=== PATIENT | female | born 1950 | race Caucasian/White ===

== ENCOUNTER → 2023-12-03 13:16 | Outpatient (REF) | payer MEDICARE, SELFPAY | LOC: MRI 13:16 | PROVIDERS: ATTENDING PHYSICIAN Orthopaedic Surgery Hand Surgery; FAMILY PHYSICIAN Internal Medicine | DX: S43.004A Unspecified dislocation of right shoulder joint, initial encounter (principal) | CPT/HCPCS: 73221 ==

== ENCOUNTER → 2023-12-12 08:35 | Outpatient (REF) | payer MEDICARE, SELFPAY | LOC: RAD 08:35 | PROVIDERS: ATTENDING PHYSICIAN Orthopaedic Surgery Hand Surgery; FAMILY PHYSICIAN Internal Medicine | DX: S46.011D Strain of muscle(s) and tendon(s) of the rotator cuff of right shoulder, subsequent encounter (principal) | CPT/HCPCS: 73200 ==

== ENCOUNTER 2023-12-16 05:57 | Day surgery (SDC) | payer MEDICARE, SELFPAY ==
--- NOTE | 2023-12-08 13:56 | CM ---
Patient is scheduled for an elective R Reverse TSA on 12/16/23- she is a same day patient. Spoke with patient prior to surgery. Introduced role of Orthopedic Navigator. Patient reports that she lives alone in a two story home. Currently she
functions independently. She does not use any DME and has never had VN services. PCP is Dr. Platt.
Discussed orthopedic program and post surgical plans. Patient will return home when directed by surgeon. Reviewed MD follow up and transition to outpatient therapy. Patient is in agreement with tentative plan and states that her friend Myah will
be her support person. Patient has been in sling since 10/15/23 and has been living alone and managing well.
Patient will complete online education.
Plan: Orthopedic Navigator will be involved in the care of patient after surgery and will reassess discharge needs at that time.
[2023-12-10 13:05] VITALS: BMI 29.7
[2023-12-10 14:07] LABS: Hematocrit 39.9 % (37.0-47.0); Hemoglobin 13.5 g/dL (12.0-16.0); Mean Corp Hgb Conc. 33.8 g/dL (33.0-37.0); Mean Corpuscular Hgb 31.4 pg (27.0-31.0); Mean Corpuscular Volume 92.8 fL (81.0-99.0); Mean Platelet Volume 10.4 fL (7.4-10.4); Platelet Count 266 10^3/uL (130-400); Red Cell Dist. Width 13.2 % (11.5-14.5); White Blood Cell Count 6.7 10^3/uL (4.8-10.8)
[2023-12-10 14:17] LABS: Glycohemoglobin (HgbA1c) 5.3 % (4.0-5.6)
[2023-12-10 14:29] LABS: ALT (SGPT) < 10 U/L (0-35); AST (SGOT) 24 U/L (14-36); Albumin 3.9 g/dl (3.5-5.0); Alkaline Phosphatase 58 U/L (38-126); Blood Urea Nitrogen 19 mg/dl (7-17); Calcium 9.8 mg/dl (8.4-10.2); Carbon Dioxide 24 mmol/L (22-30); Chloride 103 mmol/L (98-107); Estimated Creatinine Clearance 73 ml/min; Glucose 88 mg/dl (70-99); Potassium 4.1 mmol/L (3.5-5.1); Sodium 136 mmol/L (135-145); Total Protein 6.2 g/dl (6.3-8.2); eGFR > 60.00
--- NOTE | 2023-12-11 11:52 | HPS.HSE ---
Family Physician
-
Family Physician: Ray Platt
Chief Complaint
-
Traumatic complete tear of the right rotator cuff. Same day surgery.
History of Present Illness
The patient is a 73 year old female presenting today for a traumatic complete tear of her right rotator cuff. In late September 2023, she tripped over a carpet and fell with her right arm outstretched. She ended up needing to have her right
shoulder reduced due to an anterior shoulder dislocation confirmed through x-ray in the ED. Since then, she continues to have right shoulder pain and instability. Her right shoulder symptoms greatly interfere with her activities of daily living and
have overall impacted her quality of life. A recent MRI of the right shoulder demonstrated a nondisplaced greater tuberosity fracture with surrounding edema and a tear involving the supraspinatus and infraspinatus with retraction to the level of the
glenoid. She was determined to be in need of a right reverse total shoulder arthroplasty. She denies any current complaints today such as chest pain, shortness of breath, palpitations, nausea, vomiting, diarrhea, lightheadedness, dizziness, cough,
sore throat, or fever.
Medical History
Past Medical History
Past Medical History: Reports Other
Additional Past Medical History:
1. Traumatic complete tear of the right rotator cuff.
2. Hypertension.
3. Hypercholesterolemia.
4. Non-sustained ventricular tachycardia.
5. PVCs, asymptomatic.
6. Complete heart block, status post dual chamber pacemaker implant 01/2020.
7. Mild valvular disease.
8. Chronic dyspnea on exertion.
9. Diverticulosis.
10. Small bowel obstruction, 2012, status post bowel resection and lysis of adhesions.
11. Parkinson's disease.
12. Hypothyroidism.
13. Basal cell carcinoma, face and head, status post excision.
14. Vitamin B12 deficiency.
15. Remote history of tobacco abuse.
16. Daily alcohol.
Past Surgical History: Reports Other
Additional Past Surgical History:
1. Diagnostic laparoscopy, lysis of adhesions, and small bowel resection.
2. Hysterectomy.
3. Right inguinal hernia repair.
4. Left sided dual chamber pacemaker insertion.
5. Plastic surgery for smith to face, bilateral upper extremities.
6. Basal cell carcinoma excision.
7. Tonsillectomy and adenoidectomy.
8. Dental extractions.
9. Bilateral cataract extraction.
10. Colonoscopy x2.
Social History
Tobacco: Former Smoker (Former less than 1 pack per day cigarette smoker who quit tobacco altogether in 1997. )
Alcohol: Daily (Reportedly drinks 1-2 glasses of wine nightly. )
Personal:
Living: Other (She resides independently in a 2 story home. She will be staying at her friend Iqra's home for a few days after surgery. )
Family History
Family History: Not pertinent
Allergies / Home Medications
Allergy/Medication List:
Home medications:
1. Acetaminophen 1000 mg p.o. every 6 hours as needed.
2. Carbidopa-Levodopa 25-100 mg, 1 tablet p.o. three times a day.
3. Levothyroxine 100 mcg p.o. daily.
4. Lisinopril 2.5 mg p.o. daily.
5. Simvastatin 80 mg p.o. daily.
Allergies: No known allergies.
Review of Systems
-
A 12 point ROS was completed and negative except as noted: Yes
Physical Exam
Vital Signs
Blood pressure 129/74. Heart rate 63. Respirations 18. Pulse ox 97% on room air.
Height 5 feet, 1 inch. Weight 71.3 kg. BMI 29.7.
Physical Exam
General: Well Developed, Well Nourished and No Apparent Distress
HEENT: NormoCephalic, Moist mucous membranes, Atraumatic and PERRLA
Respiratory: Clear
Cardiac: Regular Rhythm and Other (Pacemaker site intact. )
GI: Soft, Non Tender and Non Distended
Musculoskeletal: Other (Pain upon palpation of the proximal right humerus. Deltoid fires without difficulty and sensation is intact to light touch. Passive range of motion is full with gross instability and crepitation. )
Skin: Warm and Dry
Neuro: AO x 3 and Nonfocal/grossly intact
Laboratory Results
-
12/10/23 12:49
12/10/23 12:49
Laboratory Results
Total Bilirubin 1.0 mg/dl (0.2-1.3) 12/10/23 12:49
AST 24 U/L (14-36) 12/10/23 12:49
ALT < 10 U/L (0-35) 12/10/23 12:49
Alkaline Phosphatase 58 U/L (38-126) 12/10/23 12:49
Hemoglobin A1c 5.3.
MRSA nasal screen negative.
EKG provided by Cardiology.
Echocardiogram 03/27/2022: Normal left ventricular chamber size. Normal left ventricular systolic function. Left ventricular ejection fraction is 65% by visual assessment. Normal regional wall motion. Mild concentric left ventricular
hypertrophy.�Pacer wire seen in right ventricle. Mild mitral regurgitation. Mild tricuspid regurgitation. Small, loculated pericardial effusion. Compared to previous echo from January 2020, there is a small loculated pericardial effusion and pacer
wire seen.
Impression/Plan
-
CLEARANCES:
1. Cardiology, Dr. Mamadou Fuentes, cleared.
2. Primary medical and dental waived.
IMPRESSION/PLAN:
1. Traumatic complete tear of the right rotator cuff in need of a right reverse total shoulder arthroplasty with Dr. Jaun Ashley on 12/16/2023. The benefits and risks of the procedure have been explained to the patient. The patient understands
these risks and wishes to proceed.
2. DVT prophylaxis: Aspirin with bilateral venous compression devices.
3. 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 In preparation for her procedure. she has already been prescribed Oxycodone 5
mg, 1-2 tablets p.o. every 6 hours as needed for moderate to severe post-operative pain. She will also utilize Acetaminophen 1000 mg p.o. every 6 hours and Celebrex 200 mg p.o. daily.
Patient's home phone number: [phone].
Patient's cell phone number: [phone].
Patient's contact (Iqra Putnam - Friend): [phone].
[2023-12-11 15:02] VITALS: BMI 29.7
[2023-12-16] VITALS (12 sets, daily range): BP systolic 119–151; BP diastolic 58–88; BMI 29.7
[2023-12-16] MEDS: CELEBREX 200 MG PO (06:23)
[2023-12-16] MEDS: TYLENOL 1000 MG PO (06:23)
[2023-12-16] MEDS: NORMOSOL-R 1000 IV (06:23)
[2023-12-16] MEDS: ANCEF 5 IV (11:22)
== END 2023-12-16 12:03 | disposition home or self-care (01) ==
LOC: SDS 05:57
PROVIDERS: ATTENDING PHYSICIAN Orthopaedic Surgery Hand Surgery; FAMILY PHYSICIAN Internal Medicine; OTHER PHYSICIAN Internal Medicine Cardiovascular Disease; OTHER PHYSICIAN Physician Assistant
DX: S46.011A Strain of muscle(s) and tendon(s) of the rotator cuff of right shoulder, initial encounter (principal); X58.XXXA Exposure to other specified factors, initial encounter
CPT/HCPCS: 23472; 36415; 73020; 80053; 83036; 85027; 87070; C1713; C1776

== ENCOUNTER 2024-01-21 13:52 | Outpatient (RCR) | payer MEDICARE, SELFPAY | END 2024-01-21 23:59 | disposition home or self-care (01) | LOC: RPT 13:52 | PROVIDERS: ATTENDING PHYSICIAN Physician Assistant Surgical; FAMILY PHYSICIAN Internal Medicine | DX: Z47.89 Encounter for other orthopedic aftercare (principal); M25.511 Pain in right shoulder; M62.81 Muscle weakness (generalized); R29.3 Abnormal posture | CPT/HCPCS: 97010; 97110; 97140; 97162; 97530 ==

== ENCOUNTER → 2024-02-16 08:01 | Outpatient (REF) | payer MEDICARE, SELFPAY ==
[2024-02-16 08:46] LABS: % Basophils 1.1 % (0-2); % Eosinophils 3.7 % (0-6); % Immature Granulocytes 0.4 % (0-0.5); % Lymphocytes 26.6 % (20.5-51.1); % Monocytes 11.2 % (1.7-9.3); Absolute Basophils 0.1 10^3/uL (0-0.2); Absolute Eosinophils 0.2 10^3/uL (0-0.7); Absolute Lymphocytes 1.5 10^3/uL (1.2-3.4); Absolute Monocytes 0.6 10^3/uL (0.1-0.6); Absolute Neutrophils 3.1 10^3/uL (1.4-6.5); Hematocrit 43.3 % (37.0-47.0); Hemoglobin 14.3 g/dL (12.0-16.0); Mean Corpuscular Hgb 30.6 pg (27.0-31.0); Mean Corpuscular Volume 92.5 fL (81.0-99.0); Nucleated Red Blood Cells % 0 %; Platelet Count 210 10^3/uL (130-400); Red Blood Cell Count 4.68 10^6/uL (4.20-5.40); Red Cell Dist. Width 13.1 % (11.5-14.5); White Blood Cell Count 5.5 10^3/uL (4.8-10.8)
[2024-02-16 09:29] LABS: ALT (SGPT) < 10 U/L (0-35); AST (SGOT) 24 U/L (14-36); Albumin 4.5 g/dl (3.5-5.0); Alkaline Phosphatase 73 U/L (38-126); Blood Urea Nitrogen 25 mg/dl (7-17); Calcium 10.2 mg/dl (8.4-10.2); Carbon Dioxide 25 mmol/L (22-30); Chloride 104 mmol/L (98-107); Glucose 94 mg/dl (70-99); HDL Cholesterol 84 mg/dl; LDL Cholesterol, Calculated 89 mg/dl; Potassium 4.2 mmol/L (3.5-5.1); Sodium 136 mmol/L (135-145); Total Bilirubin 0.9 mg/dl (0.2-1.3); Total Cholesterol 196 mg/dl (50-199); Total Protein 6.9 g/dl (6.3-8.2); Triglyceride 116 mg/dl (10-149); Very Low Density Lipoprotein 23 mg/dl (0-30); eGFR > 60.00
[2024-02-16 09:49] LABS: TSH Reflex To Free T4 4.91 uIU/ml (0.47-4.68)
== END ==
LOC: REG 08:01
PROVIDERS: ATTENDING PHYSICIAN Internal Medicine
DX: I10 Essential (primary) hypertension (principal); E78.2 Mixed hyperlipidemia
CPT/HCPCS: 36415; 80053; 80061; 84439; 84443; 85025

== ENCOUNTER 2024-02-23 13:14 | Outpatient (RCR) | payer MEDICARE, SELFPAY | END 2024-02-23 23:59 | disposition home or self-care (01) | LOC: RPT 13:14 | PROVIDERS: ATTENDING PHYSICIAN Physician Assistant Surgical; FAMILY PHYSICIAN Internal Medicine | DX: Z47.89 Encounter for other orthopedic aftercare (principal); M25.511 Pain in right shoulder; M62.81 Muscle weakness (generalized); R29.3 Abnormal posture; Z73.6 Limitation of activities due to disability | CPT/HCPCS: 97010; 97110; 97140; 97530 ==

== ENCOUNTER → 2024-03-01 08:51 | Outpatient (REF) | payer MEDICARE, SELFPAY ==
[2024-03-01 12:07] LABS: Vitamin B12 632 pg/ml (239-931)
== END ==
LOC: REG 08:51
PROVIDERS: ATTENDING PHYSICIAN Psychiatry & Neurology Neurology; FAMILY PHYSICIAN Internal Medicine
DX: E53.8 Deficiency of other specified B group vitamins (principal)
CPT/HCPCS: 36415; 82607

== ENCOUNTER 2024-03-25 09:54 | Outpatient (RCR) | payer MEDICARE, SELFPAY | END 2024-03-25 23:59 | disposition home or self-care (01) | LOC: RPT 09:54 | PROVIDERS: ATTENDING PHYSICIAN Physician Assistant Surgical; FAMILY PHYSICIAN Internal Medicine | DX: M25.511 Pain in right shoulder (principal); Z47.89 Encounter for other orthopedic aftercare; M62.81 Muscle weakness (generalized); Z91.81 History of falling | CPT/HCPCS: 97010; 97110; 97112; 97140; 97530 ==

== ENCOUNTER 2024-04-22 11:23 | Outpatient (RCR) | payer MEDICARE, SELFPAY | END 2024-04-22 23:59 | disposition home or self-care (01) | LOC: RPT 11:23 | PROVIDERS: ATTENDING PHYSICIAN Physician Assistant Surgical; FAMILY PHYSICIAN Internal Medicine | DX: Z47.89 Encounter for other orthopedic aftercare (principal); M25.511 Pain in right shoulder; M62.81 Muscle weakness (generalized); R29.3 Abnormal posture | CPT/HCPCS: 97010; 97110; 97112; 97140; 97530 ==

== ENCOUNTER 2024-05-24 11:58 | Outpatient (RCR) | payer MEDICARE, SELFPAY | END 2024-05-24 23:59 | disposition home or self-care (01) | LOC: RPT 11:58 | PROVIDERS: ATTENDING PHYSICIAN Physician Assistant Surgical; FAMILY PHYSICIAN Internal Medicine | DX: Z47.89 Encounter for other orthopedic aftercare (principal); M25.511 Pain in right shoulder; M62.81 Muscle weakness (generalized); R29.3 Abnormal posture | CPT/HCPCS: 97010; 97110; 97140; 97530 ==

== ENCOUNTER → 2024-06-04 08:17 | Outpatient (REF) | payer MEDICARE, SELFPAY ==
[2024-06-04 09:05] LABS: % Basophils 1.4 % (0-2); % Eosinophils 3.7 % (0-6); % Immature Granulocytes 0.4 % (0-0.5); % Lymphocytes 26.4 % (20.5-51.1); % Monocytes 10.2 % (1.7-9.3); % Neutrophils 57.9 % (42.2-75.2); Absolute Basophils 0.1 10^3/uL (0-0.2); Absolute Eosinophils 0.2 10^3/uL (0-0.7); Absolute Lymphocytes 1.4 10^3/uL (1.2-3.4); Absolute Monocytes 0.5 10^3/uL (0.1-0.6); Hematocrit 37.5 % (37.0-47.0); Hemoglobin 13.1 g/dL (12.0-16.0); Mean Corp Hgb Conc. 34.9 g/dL (33.0-37.0); Mean Corpuscular Hgb 30.7 pg (27.0-31.0); Mean Corpuscular Volume 87.8 fL (81.0-99.0); Mean Platelet Volume 10.1 fL (7.4-10.4); Nucleated Red Blood Cells % 0 %; Platelet Count 207 10^3/uL (130-400); Red Blood Cell Count 4.27 10^6/uL (4.20-5.40); Red Cell Dist. Width 13.5 % (11.5-14.5); White Blood Cell Count 5.2 10^3/uL (4.8-10.8)
[2024-06-04 09:53] LABS: ALT (SGPT) < 10 U/L (0-35); AST (SGOT) 25 U/L (14-36); Albumin 4.1 g/dl (3.5-5.0); Alkaline Phosphatase 62 U/L (38-126); Blood Urea Nitrogen 18 mg/dl (7-17); Calcium 9.9 mg/dl (8.4-10.2); Carbon Dioxide 24 mmol/L (22-30); Chloride 106 mmol/L (98-107); Glucose 87 mg/dl (70-99); HDL Cholesterol 77 mg/dl; LDL Cholesterol, Calculated 103 mg/dl; Potassium 4.2 mmol/L (3.5-5.1); Sodium 136 mmol/L (135-145); Total Bilirubin 1.2 mg/dl (0.2-1.3); Total Cholesterol 204 mg/dl (50-199); Total Protein 6.1 g/dl (6.3-8.2); Triglyceride 124 mg/dl (10-149); Very Low Density Lipoprotein 24 mg/dl (0-30); eGFR > 60.00
[2024-06-04 10:53] LABS: Free T4 1.07 ng/dl (0.78-2.19)
== END ==
LOC: REG 08:17
PROVIDERS: ATTENDING PHYSICIAN Internal Medicine
DX: I10 Essential (primary) hypertension (principal); E03.9 Hypothyroidism, unspecified; E78.2 Mixed hyperlipidemia
CPT/HCPCS: 36415; 80053; 80061; 84439; 84443; 85025

== ENCOUNTER 2024-06-24 10:57 | Outpatient (RCR) | payer MEDICARE, SELFPAY | END 2024-06-24 23:59 | disposition home or self-care (01) | LOC: RPT 10:57 | PROVIDERS: ATTENDING PHYSICIAN Physician Assistant Surgical; FAMILY PHYSICIAN Internal Medicine | DX: Z47.1 Aftercare following joint replacement surgery (principal); Z96.611 Presence of right artificial shoulder joint; M25.511 Pain in right shoulder | CPT/HCPCS: 97010; 97110; 97112; 97140; 97530 ==

== ENCOUNTER 2024-07-22 11:01 | Outpatient (RCR) | payer MEDICARE, SELFPAY | END 2024-07-22 23:59 | disposition home or self-care (01) | LOC: RPT 11:01 | PROVIDERS: ATTENDING PHYSICIAN Physician Assistant Surgical; FAMILY PHYSICIAN Internal Medicine | DX: Z47.89 Encounter for other orthopedic aftercare (principal); M25.511 Pain in right shoulder; M62.81 Muscle weakness (generalized); R29.3 Abnormal posture; Z73.6 Limitation of activities due to disability | CPT/HCPCS: 97010; 97110; 97112; 97530 ==

== ENCOUNTER 2024-08-25 11:58 | Outpatient (RCR) | payer MEDICARE, SELFPAY | END 2024-08-25 23:59 | disposition home or self-care (01) | LOC: RPT 11:58 | PROVIDERS: ATTENDING PHYSICIAN Physician Assistant Surgical; FAMILY PHYSICIAN Internal Medicine | DX: Z47.1 Aftercare following joint replacement surgery (principal); Z96.611 Presence of right artificial shoulder joint | CPT/HCPCS: 97110; 97112; 97530 ==

== ENCOUNTER → 2024-09-23 13:24 | Outpatient (REF) | payer MEDICARE, SELFPAY | LOC: MRI 13:24 | PROVIDERS: ATTENDING PHYSICIAN Orthopaedic Surgery Hand Surgery; FAMILY PHYSICIAN Internal Medicine | DX: M79.601 Pain in right arm (principal) | CPT/HCPCS: 72141; 72148; 73218 ==

== ENCOUNTER → 2024-10-11 08:36 | Outpatient (REF) | payer MEDICARE, SELFPAY ==
[2024-10-11 14:24] LABS: Free T4 1.33 ng/dl (0.78-2.19)
== END ==
LOC: REG 08:36
PROVIDERS: ATTENDING PHYSICIAN Internal Medicine
DX: E03.9 Hypothyroidism, unspecified (principal)
CPT/HCPCS: 36415; 84439; 84443

== ENCOUNTER → 2025-02-17 07:50 | Outpatient (REF) | payer MEDICARE, SELFPAY ==
[2025-02-17 09:44] LABS: ALT (SGPT) < 10 U/L (0-35); AST (SGOT) 25 U/L (14-36); Albumin 3.8 g/dl (3.5-5.0); Alkaline Phosphatase 84 U/L (38-126); Blood Urea Nitrogen 23 mg/dl (7-17); Calcium 9.2 mg/dl (8.4-10.2); Carbon Dioxide 26 mmol/L (22-30); Chloride 107 mmol/L (98-107); Glucose 92 mg/dl (70-99); HDL Cholesterol 43 mg/dl; LDL Cholesterol, Calculated 89 mg/dl; Potassium 4.4 mmol/L (3.5-5.1); Sodium 141 mmol/L (135-145); Total Bilirubin 0.9 mg/dl (0.2-1.3); Total Cholesterol 152 mg/dl (50-199); Total Protein 6.2 g/dl (6.3-8.2); Triglyceride 104 mg/dl (10-149); Very Low Density Lipoprotein 20 mg/dl (0-30); eGFR > 60.00
[2025-02-17 10:11] LABS: TSH Reflex To Free T4 5.99 uIU/ml (0.47-4.68)
[2025-02-17 10:41] LABS: Free T4 1.54 ng/dl (0.78-2.19)
== END ==
LOC: REG 07:50
PROVIDERS: ATTENDING PHYSICIAN Internal Medicine
DX: E03.9 Hypothyroidism, unspecified (principal); E78.5 Hyperlipidemia, unspecified; I10 Essential (primary) hypertension; E78.2 Mixed hyperlipidemia
CPT/HCPCS: 36415; 80053; 80061; 84439; 84443

== ENCOUNTER → 2025-03-10 07:51 | Outpatient (REF) | payer MEDICARE, SELFPAY | LOC: RCS 07:51 | PROVIDERS: ATTENDING PHYSICIAN Internal Medicine Cardiovascular Disease; FAMILY PHYSICIAN Internal Medicine | DX: I49.3 Ventricular premature depolarization (principal); R06.02 Shortness of breath | CPT/HCPCS: 93306 ==

== ENCOUNTER → 2025-03-27 11:51 | Outpatient (REF) | payer MEDICARE, SELFPAY | LOC: RCS 11:51 | PROVIDERS: ATTENDING PHYSICIAN Internal Medicine Cardiovascular Disease; FAMILY PHYSICIAN Internal Medicine | DX: I49.3 Ventricular premature depolarization (principal); R06.02 Shortness of breath | CPT/HCPCS: 78452; 93017; A9500; J2785 ==

== ENCOUNTER → 2025-04-05 08:56 | Outpatient (REF) | payer MEDICARE, SELFPAY | LOC: HWRAD 08:56 | PROVIDERS: ATTENDING PHYSICIAN Orthopaedic Surgery Hand Surgery; FAMILY PHYSICIAN Internal Medicine | DX: Z96.611 Presence of right artificial shoulder joint (principal) | CPT/HCPCS: 73200 ==

== ENCOUNTER → 2025-04-14 11:50 | Outpatient (REF) | payer MEDICARE, SELFPAY ==
[2025-04-14 13:24] LABS: % Basophils 0.8 % (0-2); % Eosinophils 0.9 % (0-6); % Immature Granulocytes 0.9 % (0-0.5); % Lymphocytes 9.9 % (20.5-51.1); % Monocytes 8.3 % (1.7-9.3); % Neutrophils 79.2 % (42.2-75.2); Absolute Basophils 0.1 10^3/uL (0-0.2); Absolute Eosinophils 0.1 10^3/uL (0-0.7); Absolute Immature Granulocytes 0.1 10^3/uL (0-0.05); Absolute Lymphocytes 1.2 10^3/uL (1.2-3.4); Absolute Neutrophils 9.3 10^3/uL (1.4-6.5); Hematocrit 41.3 % (37.0-47.0); Mean Corp Hgb Conc. 33.9 g/dL (33.0-37.0); Mean Corpuscular Hgb 29.9 pg (27.0-31.0); Mean Corpuscular Volume 88.2 fL (81.0-99.0); Mean Platelet Volume 11.5 fL (7.4-10.4); Nucleated Red Blood Cells % 0 %; Platelet Count 213 10^3/uL (130-400); Red Blood Cell Count 4.68 10^6/uL (4.20-5.40); White Blood Cell Count 11.7 10^3/uL (4.8-10.8)
[2025-04-14 13:48] LABS: C-Reactive Protein < 5.00 mg/L (0.0-10.00)
[2025-04-14 14:06] LABS: Erythrocyte Sed Rate 5 mm/hour (0-20)
== END ==
LOC: REG 11:50
PROVIDERS: ATTENDING PHYSICIAN Orthopaedic Surgery Hand Surgery; FAMILY PHYSICIAN Internal Medicine
DX: Z96.611 Presence of right artificial shoulder joint (principal)
CPT/HCPCS: 36415; 85025; 85652; 86140

== ENCOUNTER 2025-04-18 13:03 | Outpatient (RCR) | payer MEDICARE, SELFPAY | END 2025-04-18 23:59 | disposition home or self-care (01) | LOC: RPT 13:03 | PROVIDERS: ATTENDING PHYSICIAN Orthopaedic Surgery Hand Surgery; FAMILY PHYSICIAN Internal Medicine | DX: Z47.1 Aftercare following joint replacement surgery (principal); Z96.611 Presence of right artificial shoulder joint; Z73.6 Limitation of activities due to disability | CPT/HCPCS: 97010; 97110; 97112; 97140; 97162 ==

== ENCOUNTER → 2025-04-20 12:26 | Outpatient (REF) | payer MEDICARE, SELFPAY ==
[2025-04-20 12:54] VITALS: BP 127/76; BP_SYST 80
== END ==
LOC: RADI 12:26
PROVIDERS: ATTENDING PHYSICIAN Orthopaedic Surgery Hand Surgery; FAMILY PHYSICIAN Internal Medicine
DX: M25.511 Pain in right shoulder (principal); Z96.611 Presence of right artificial shoulder joint
CPT/HCPCS: 20610; 76942; 77002; 87015; 87070; 87075; 87205

== ENCOUNTER → 2025-05-19 14:07 | Outpatient (REF) | payer MEDICARE, SELFPAY | LOC: WDC 14:07 | PROVIDERS: ATTENDING PHYSICIAN Internal Medicine | DX: Z78.0 Asymptomatic menopausal state (principal); Z12.31 Encounter for screening mammogram for malignant neoplasm of breast | CPT/HCPCS: 77063; 77067; 77080 ==

== ENCOUNTER 2025-05-22 13:23 | Outpatient (RCR) | payer MEDICARE, SELFPAY | END 2025-05-22 23:59 | disposition home or self-care (01) | LOC: RPT 13:23 | PROVIDERS: ATTENDING PHYSICIAN Orthopaedic Surgery Hand Surgery; FAMILY PHYSICIAN Internal Medicine | DX: Z47.1 Aftercare following joint replacement surgery (principal); Z96.611 Presence of right artificial shoulder joint; M62.81 Muscle weakness (generalized); Z73.6 Limitation of activities due to disability; M25.511 Pain in right shoulder | CPT/HCPCS: 97010; 97110; 97140 ==

== ENCOUNTER 2025-06-23 09:13 | Outpatient (RCR) | payer MEDICARE, SELFPAY | END 2025-06-23 23:59 | disposition home or self-care (01) | LOC: RPT 09:13 | PROVIDERS: ATTENDING PHYSICIAN Orthopaedic Surgery Hand Surgery; FAMILY PHYSICIAN Internal Medicine | DX: Z47.1 Aftercare following joint replacement surgery (principal); Z73.6 Limitation of activities due to disability; M25.511 Pain in right shoulder; M62.81 Muscle weakness (generalized); Z96.611 Presence of right artificial shoulder joint | CPT/HCPCS: 97010; 97110; 97140 ==

== ENCOUNTER 2025-07-25 06:23 | Outpatient (RCR) | payer MEDICARE, SELFPAY | END 2025-07-25 23:59 | disposition home or self-care (01) | LOC: RPT 06:23 | PROVIDERS: ATTENDING PHYSICIAN Orthopaedic Surgery Hand Surgery; FAMILY PHYSICIAN Internal Medicine | DX: Z47.1 Aftercare following joint replacement surgery (principal); M25.511 Pain in right shoulder; M62.81 Muscle weakness (generalized); Z96.611 Presence of right artificial shoulder joint; Z73.6 Limitation of activities due to disability | CPT/HCPCS: 97010; 97110; 97140 ==

== ENCOUNTER 2025-08-24 07:00 | Outpatient (RCR) | payer MEDICARE, SELFPAY | END 2025-08-24 23:59 | disposition home or self-care (01) | LOC: RPT 07:00 | PROVIDERS: ATTENDING PHYSICIAN Orthopaedic Surgery Hand Surgery; FAMILY PHYSICIAN Internal Medicine | DX: Z47.1 Aftercare following joint replacement surgery (principal); Z73.6 Limitation of activities due to disability; M25.511 Pain in right shoulder; M62.81 Muscle weakness (generalized); Z96.611 Presence of right artificial shoulder joint | CPT/HCPCS: 97110; 97112; 97140 ==

== ENCOUNTER 2025-09-01 13:27 | Outpatient (RCR) | payer MEDICARE, SELFPAY | END 2025-09-01 14:05 | disposition home or self-care (01) | LOC: RPT 13:27 | PROVIDERS: ATTENDING PHYSICIAN Orthopaedic Surgery Hand Surgery; FAMILY PHYSICIAN Internal Medicine | DX: Z47.1 Aftercare following joint replacement surgery (principal); Z73.6 Limitation of activities due to disability; M25.511 Pain in right shoulder; M62.81 Muscle weakness (generalized); Z96.611 Presence of right artificial shoulder joint | CPT/HCPCS: 97110; 97112 ==

== ENCOUNTER → 2025-09-05 09:06 | Outpatient (REF) | payer MEDICARE, SELFPAY ==
[2025-09-05 11:11] LABS: ALT (SGPT) < 10 U/L (0-35); AST (SGOT) 23 U/L (14-36); Albumin 4.1 g/dl (3.5-5.0); Alkaline Phosphatase 98 U/L (38-126); Blood Urea Nitrogen 20 mg/dl (7-17); Calcium 9.7 mg/dl (8.4-10.2); Carbon Dioxide 26 mmol/L (22-30); Chloride 105 mmol/L (98-107); Glucose 79 mg/dl (70-99); HDL Cholesterol 70 mg/dl; LDL Cholesterol, Calculated 103 mg/dl; Potassium 4.2 mmol/L (3.5-5.1); Sodium 136 mmol/L (135-145); Total Protein 7.0 g/dl (6.3-8.2); Very Low Density Lipoprotein 14 mg/dl (0-30); eGFR > 60.00
== END ==
LOC: REG 09:06
PROVIDERS: ATTENDING PHYSICIAN Internal Medicine
DX: Z00.00 Encounter for general adult medical examination without abnormal findings (principal); N95.9 Unspecified menopausal and perimenopausal disorder; E03.9 Hypothyroidism, unspecified; Z95.0 Presence of cardiac pacemaker; I44.2 Atrioventricular block, complete; E78.5 Hyperlipidemia, unspecified; I10 Essential (primary) hypertension; E78.2 Mixed hyperlipidemia; Z68.28 Body mass index [BMI] 28.0-28.9, adult; D72.829 Elevated white blood cell count, unspecified; G20.A1 Parkinson's disease without dyskinesia, without mention of fluctuations
CPT/HCPCS: 36415; 80053; 80061; 84443

== ENCOUNTER 2025-09-18 06:26 | Outpatient (RCR) | payer MEDICARE, SELFPAY | END 2025-09-18 23:59 | disposition home or self-care (01) | LOC: RPT 06:26 | PROVIDERS: ATTENDING PHYSICIAN Physician Assistant; FAMILY PHYSICIAN Internal Medicine | DX: M54.16 Radiculopathy, lumbar region (principal); M47.816 Spondylosis without myelopathy or radiculopathy, lumbar region; Z73.6 Limitation of activities due to disability; G20.A1 Parkinson's disease without dyskinesia, without mention of fluctuations; M62.81 Muscle weakness (generalized) | CPT/HCPCS: 97112; 97163 ==

== ENCOUNTER 2025-10-25 07:18 | Outpatient (RCR) | payer MEDICARE, SELFPAY | END 2025-10-25 23:59 | disposition home or self-care (01) | LOC: RPT 07:18 | PROVIDERS: ATTENDING PHYSICIAN Physician Assistant; FAMILY PHYSICIAN Internal Medicine | DX: M54.16 Radiculopathy, lumbar region (principal); M47.816 Spondylosis without myelopathy or radiculopathy, lumbar region; Z73.6 Limitation of activities due to disability; G20.A1 Parkinson's disease without dyskinesia, without mention of fluctuations; M62.81 Muscle weakness (generalized) | CPT/HCPCS: 97010; 97110; 97112 ==